=== PATIENT | female | born 1940 | race Caucasian/White ===

== ENCOUNTER → 2018-08-01 | Outpatient (CLI) | payer OTHER, MEDICARE | LOC: FIMAGING 13:18 | PROVIDERS: ATTEND Podiatrist Primary Podiatric Medicine | DX: L89.620 Pressure ulcer of left heel, unstageable (principal); R93.7 Abnormal findings on diagnostic imaging of other parts of musculoskeletal system ==

== ENCOUNTER 2018-08-15 08:32 | Day surgery (SDC) | payer OTHER, MEDICARE ==
[~2018-08-15 08:32] MED LIST: CITRIC ACID/SODIUM CITRATE 30 ML UDCUP PO ONE
[2018-08-15] MEDS ORDERED: LR 1,000 ML IV ONE (08:40)
[2018-08-15] MEDS ORDERED: BACITRACIN 50,000 UNITS/10 ML SYR IRR ONE ×2 (08:42→11:15)
[2018-08-15] MEDS ORDERED: EPINEPHrine 1 MG/ML INJ ONE (08:42)
[2018-08-15] MEDS ORDERED: BUPIVACAINE 0.25% 30 ML SDV ONE (08:42)
[2018-08-15] MEDS ORDERED: ALBUTEROL 3 ML DEYVIAL IH PRN (09:33)
[2018-08-15] MEDS ORDERED: NALOXONE HCL 0.4 MG/ML INJ IVP PRN (09:33)
[2018-08-15] MEDS ORDERED: ONDANSETRON 4 MG/2 ML VIAL IVP PRN (09:33)
[2018-08-15] MEDS ORDERED: fentaNYL 100 MCG/2 ML INJ IVP PRN (09:33)
--- NOTE | 2018-08-15 09:33 | PDANEPAE ---
ANE Past Medical History - Cardiovascular History Hx Hypertension: Yes Hx Arrhythmias: No Hx Chest Pain: No Hx Coronary Artery / Peripheral Vascular Disease: Yes Hx CHF / Valvular Disease: No Hx Palpitations: No Cardiovascular History Comment: cardiac stents x4. cad. htn. 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 hx of pna after back surgery last year - Neurologic History Hx Cerebrovascular Accident: No Hx Seizures: No Hx Dementia: No - Endocrine History Hx Diabetes: Yes Obesity: yes, severe Endocrine History Comment: type 2. hypothyroidism - Renal History Hx Renal Disorders: No - Liver History Hx Hepatic Disorders: No - Neurological & Psychiatric Hx Hx Neurological and Psychiatric Disorders: No - Cancer History Hx Cancer: No - Congenital Disorder History Hx Congenital Disorders: No - GI History Hx Gastrointestinal Disorders: Yes Gastrointestinal History Comment: occ constipation- takes a stool softner regularly - Other Health History Other Health History: wears reading glasses. current right heal wound - Chronic Pain History Chronic Pain: No - Surgical History Prior Surgeries: back surgery 07/27/2017. hysterectomy. hammer toe repair x2 ANE Review of Systems Review of Systems: - Exercise capacity METS (RN): 2 METS ANE Patient History - Allergies Allergies/Adverse Reactions: atorvastatin [From Lipitor] Allergy (Verified 08/14/18 17:07) - Home Medications Home Medications: Amiodarone HCl 08/14/18 [Last Taken 08/14/18] Azopt 1% 08/14/18 [Last Taken Unknown] B Complex with Vitamin C 08/14/18 [Last Taken 08/15/18] Brilinta 08/14/18 [Last Taken 08/14/18] Humalog 08/14/18 [Last Taken 08/14/18] Lantus 08/14/18 [Last Taken 08/15/18] Lasix 08/14/18 [Last Taken 08/15/18] Levothyroxine 08/14/18 [Last Taken 08/15/18] Lumigan 0.01% (*) 08/14/18 [Last Taken 08/15/18] Melatonin 3 MG (*) 08/14/18 [Last Taken Unknown] Metoprolol Succinate 08/14/18 [Last Taken 08/15/18] Montelukast Sodium PRN 08/14/18 [Last Taken 08/15/18] Potassium Chloride 08/14/18 [Last Taken 08/15/18] Pravastatin Sodium HS 08/14/18 [Last Taken 08/15/18] Senna-Docusate Sodium Tablet 08/14/18 [Last Taken 08/15/18] Tylenol BID 08/14/18 [Last Taken 08/15/18] Xarelto 15mg (*) 08/14/18 [Last Taken 08/15/18] - NPO status NPO Since - Liquids (Date): 08/15/18 NPO Since - Liquids (Time): 05:30 NPO Since - Solids (Date): 08/14/18 NPO Since - Solids (Time): 18:00 - Anes Hx Anes Hx: no prior problems - Smoking Hx Smoking Status: Never smoked - Family Anes Hx Family Hx Anesthesia Complications: none ANE Labs/Vital Signs - Labs Result Diagrams: 08/15/18 08:54 - Vital Signs Blood Pressure: 109/56 Heart Rate: 69 Respiratory Rate: 18 O2 Sat (%): 93 Height: 157.48 cm Weight: 104.326 kg ANE Physical Exam - Airway Neck exam: decreased ROM Mallampati Score: Class 3 Mouth exam: normal dental/mouth exam - Pulmonary Pulmonary: no respiratory distress, clear to auscultation - Cardiovascular Cardiovascular: regular rate and rhythym - ASA Status ASA Status: IV ANE Anesthesia Plan Anesthesia Plan: MAC
[2018-08-15] MEDS ORDERED: fentaNYL 100 MCG/2 ML INJ ONE (09:41)
[2018-08-15] MEDS ORDERED: MIDAZOLAM 2 MG/2 ML VIAL ONE (09:41)
[2018-08-15] MEDS ORDERED: PROPOFOL/EMULSION 500 MG/50 ML BOTTLE IV ONE (09:41)
--- NOTE | 2018-08-15 10:12 | PDHPUP ---
History & Physical Update H&P update statement: This history and physical update is based on an assessment of the patient which was completed after admission or registration (within 24 hours), but prior to the surgery/procedure. H&P update: no change in patient's condition since H&P completed H&P changes: none
[2018-08-15] MEDS ORDERED: ceFAZolin 1 GM VIAL ONE ×2 (10:47)
[2018-08-15] MEDS ORDERED: POLYMYXIN B SULFATE 500,000 UNIT/10 ML SYR IRR ONE (11:14)
--- NOTE | 2018-08-15 11:32 | POSTOPPROG ---
Post Op Note Date of Operation: 08/15/18 Surgeon: Dominguez Griffin Records Management Clerk: none Anesthesiologist: rebecca Anesthesia: IV Sedation Pre-op Diagnosis: right calcaneal ulcer with osteomyelitis Post-op Diagnosis: same Indication: osteo Procedure: debridement including bone right calcaneus Findings: infection Inf/Abcess present in the surg proc area at time of surgery?: Yes Depth: Deep Incisional (Fascial) EBL: Minimal Total fluids administered: 20cc 9/1 ratio .25% marcaine plain and with epi Complications: none Drains: Other (none)
--- NOTE | 2018-08-15 12:06 | POSTANESTH ---
Post Anesthetic Evaluation Cardiovascular Status: Normal, Stable Respiratory Status: Similar to Pre-op Cond. Level of Consciousness/Mental Status: Can Participate in Eval Pain Control: Adequate, Prn Tx Ordered Nausea/Vomiting Control: Adequate, Prn Tx Ordered Complications Possibly Related to Anesthesia: None Noted
[2018-08-15 13:23] VITALS: BP 114/80
--- NOTE | 2018-08-15 15:42 | CPEKG ---
Test Reason : OPEN Blood Pressure : / mmHG Vent. Rate : 068 BPM Atrial Rate : 068 BPM P-R Int : 213 ms QRS Dur : 110 ms QT Int : 483 ms P-R-T Axes : 038 -43 083 degrees QTc Int : 514 ms Sinus rhythm Borderline prolonged IN interval Incomplete left bundle branch block Inferior infarct, old Prolonged QT interval Confirmed by Sanford Trujillo ([id number]) on 08/15/2018 3:42:24 PM Referred By: Confirmed By:Sanford Trujillo
--- NOTE | 2018-08-15 19:10 | GOP ---
DATE OF OPERATION: 08/15/2018 SURGEON: Dominguez Griffin DPM DIRECTOR OF SLEEP: None. ANESTHESIA: Local with MAC by Dr. Booker. PREOPERATIVE DIAGNOSIS: 1. Ulceration, right calcaneus. 2. Osteomyelitis, right calcaneus. POSTOPERATIVE DIAGNOSIS: 1. Ulceration, right calcaneus. 2. Osteomyelitis, right calcaneus. PROCEDURE PERFORMED: FINDINGS: ESTIMATED BLOOD LOSS: Minimal. DESCRIPTION OF PROCEDURE: The patient presented to [facility] and was cleared for the intended procedure. The patient was taken to the operating room and placed on the table in the supin e position. IV sedation was started per the anesthesia department. The foot was anesthetized in an infiltrative nerve block fashion. The foot was prepped, scrubbed and draped in the usual sterile fas hion. At this time, attention was directed to the plantar aspect of the right calcaneus where the ob vious ulceration was noted. There was no purulent drainage, but there was considerable odor to the s ite. There was a wound base of 100% slough and epi escharotic material. It was decided at this poin t that debridement would be necessary, and at this time, it was decided that the Versajet would be ut ilized. Upon attempting to utilize the Versajet on the hyperkeratotic tissue around the ulcer, it wa s too thick to get through. It had to be thoroughly debrided with a 10 blade at this time. Then the Versajet set at level 10 was utilized to remove all the escharotic material going down to healthy bl eeding tissue. Upon doing so, the ulceration was noted to probe directly down to the bone where the palpable calcaneus was appreciable. It was decided at this time after probing the area that resectio n of the calcaneus was not necessary as the bone felt relatively solid. I decided to take a bone bio psy of the area by sola. Upon completion of this, the area was smoothed with a bone rasp. The pa tient was then given 2 g of IV Ancef and the area was flushed with copious amounts of sterile saline and antibiotic rinse in a pulse lavage fashion. The decision was then made that there was enough hea lthy tissue around the area that I could close deep tissue over the bone utilizing 2-0 Vicryl. The u lceration itself still measured 4 cm in diameter and could not be primarily closed, and given the inf ection that was present in the area, I decided against any grafting at this time either. The area wa s dressed with Betadine-soaked Adaptics, 4x4s, Kerlix and Coban. The patient was taken to the recovery room. Vital signs were stable and vascular supply intact to di gits 1 through 5 bilaterally. PROCEDURE: Extensive debridement of ulceration and including right calcaneus. PATHOLOGY: Soft tissue and bone specimens sent for culture and sensitivity. HEMOSTASIS: None. MATERIALS: None. INJECTABLES: 20 cc, 9:1 ratio, 0.25% Marcaine plain, 0.25% Marcaine with epi preoperatively. COMPLICATIONS: None. /[id number]/MODL
--- NOTE | 2018-08-21 09:52 | PQFORM ---
PHYSICIAN QUERY FORM Needs Your Response This query form is being sent to you to assure this patient record is coded properly. Please respond to the question below: DEICER TESTER QUESTION: Dear Dr. Griffin, For coding purposes (there is a different code choice for excisional versus non excisional debridement)- please clarify if the debridement done on 08/15 on the "hyperkeratotic tissue that was around ulcer" that was "to be too thick for the versa jet" was: ___~ Excisional ___~ Non Excisional ___~ Other Thank You SONU Chavez HIM/Coding Dept. [phone] INSTRUCTIONS FOR RESPONSE: Answer question by clicking on the "Edit Document" button. Move cursor to area below the stars. When complete, hit "Save." Click on the "Sign" button, then click "Sign" again. Type in your PIN and hit "Enter." excisional MTDD
== END 2018-08-15 13:10 | disposition home or self-care (01) ==
LOC: FSGY 08:32
PROVIDERS: ATTEND Podiatrist Primary Podiatric Medicine
PROC: 0HBMXZZ Excision of Right Foot Skin, External Approach (ICD-10-PCS; principal; 2018-08-15 09:30)
PROC: 0JDQ0ZZ Extraction of Right Foot Subcutaneous Tissue and Fascia, Open Approach (ICD-10-PCS; principal; 2018-08-15 09:30)
PROC: 0QBL0ZX Excision of Right Tarsal, Open Approach, Diagnostic (ICD-10-PCS; principal; 2018-08-15 09:30)
DX: E11.621 Type 2 diabetes mellitus with foot ulcer (principal); L97.519 Non-pressure chronic ulcer of other part of right foot with unspecified severity; M86.071 Acute hematogenous osteomyelitis, right ankle and foot; G60.9 Hereditary and idiopathic neuropathy, unspecified; I73.9 Peripheral vascular disease, unspecified; I10 Essential (primary) hypertension; Z95.5 Presence of coronary angioplasty implant and graft; G47.33 Obstructive sleep apnea (adult) (pediatric); E03.9 Hypothyroidism, unspecified
CPT/HCPCS: J0171; J0690; J2250; J2704; J3010